=== PATIENT | male | born 1950 | race Caucasian/White ===

== ENCOUNTER 2021-07-26 20:08 | Emergency (ER) | payer MEDICARE, SELFPAY ==
[~2021-07-26] VITALS: Ht 180.3 cm; Wt 74.8 kg
[2021-07-26 20:30] VITALS: BP_SYST 99
[2021-07-26] MEDS ORDERED: PIPERACILLIN/TAZO 3.375 GM in NS 50 ML IV ONE (20:45)
[2021-07-26] MEDS ORDERED: NACL 0.9% 2,000 ML IV ONE (20:45)
[2021-07-26] MEDS ORDERED: ASPI-1155 PO (20:47)
[2021-07-26] MEDS ORDERED: ACET325T PO (20:47)
[2021-07-26] MEDS ORDERED: BISA10SU61 RC (20:48)
[2021-07-26] MEDS ORDERED: BISO5TAB15 PO (20:49)
[2021-07-26] MEDS ORDERED: DONE10TA44 PO (20:51)
[2021-07-26] MEDS ORDERED: CARB1TAB21 PO ×2 (20:51)
[2021-07-26] MEDS ORDERED: LOVA20TA2 PO (20:52)
[2021-07-26] MEDS ORDERED: LOSA25TA3 PO (20:52)
[2021-07-26] MEDS ORDERED: POLY17PO4 PO (20:56)
[2021-07-26] MEDS ORDERED: SER25 PO (20:56)
[2021-07-26] MEDS ORDERED: SERT-436 PO (20:57)
[2021-07-26 21:18] LABS: BASOPHILS % (AUTO) 0.3 % (0.0-2.0); EOSINOPHILS % (AUTO) 0.4 % (0.0-4.0); HEMATOCRIT 38.7 % (36-54); HEMOGLOBIN 12.9 g/dL (14.0-18.0); LYMPHOCYTES # (AUTO) 1.4 K/uL (1.0-5.5); LYMPHOCYTES % (AUTO) 11.7 % (20.5-51.5); MEAN CORPUSCULAR HEMOGLOBIN 29 pg (27-31); MEAN CORPUSCULAR HGB CONC 33 % (32-36); MEAN CORPUSCULAR VOLUME 88 fL (79.0-98.0); MONOCYTES % (AUTO) 8.6 % (1.7-9.3); NEUTROPHILS # (AUTO) 9.5 K/uL (1.8-7.7); PLATELET COUNT (AUTO) 208 K/uL (130-430); RED CELL DISTRIBUTION WIDTH 13.4 % (9.0-15.0); WHITE BLOOD COUNT (AUTO) 12.1 K/uL (4.8-10.8)
[2021-07-26 21:25] LABS: PROTHROMBIN TIME 9.9 SECS (9.5-12.5)
[2021-07-26 21:28] LABS: ANION GAP 7 (5-15); CHLORIDE 101 mmol/L (98-107); CREATININE 0.82 mg/dL (0.55-1.30); GLUCOSE 104 mg/dL (70-99); POTASSIUM 3.6 mmol/L (3.5-5.1); SODIUM SERUM 138 mmol/L (136-145); UREA NITROGEN, BLOOD 20 mg/dL (8-21)
[2021-07-26] MEDS ORDERED: cefTRIAXone 1 GM in D5W 50 ML IV ONE (21:30)
[2021-07-26 21:37] LABS: ALANINE AMINOTRANSFERASE 11 U/L (12-78); ALBUMIN 3.2 g/dL (3.4-4.8); ASPARTATE AMINOTRANSFERASE 15 U/L (10-37); TOTAL BILIRUBIN 0.8 mg/dL (0.0-1.0)
[2021-07-26] MEDS ORDERED: cefTRIAXone 1 GM VIAL ONE (21:53)
[2021-07-26 23:26] LABS: CLARITY/URINE SLIGHTLY HAZY (CLEAR); COLOR,URINE YELLOW (YELLOW)
[2021-07-26 23:29] LABS: PH,URINE 6.5 (5.0-8.0)
[2021-07-26 23:30] LABS: BILIRUBIN,URINE NEGATIVE (NEGATIVE); BLOOD, URINE 3+ (NEGATIVE); GLUCOSE,URINE NEGATIVE (NEGATIVE); KETONES,URINE NEGATIVE (NEGATIVE); LEUKOCYTE ESTERASE ,URINE 1+ (NEGATIVE); NITRITE, URINE NEGATIVE (NEGATIVE); PROTEIN URINE 2+ (NEGATIVE)
[2021-07-27] MEDS ORDERED: NACL 0.9% 1,000 ML IV ONE ×2 (00:15→01:30)
[2021-07-27 01:11] LABS: BACTERIA,URINE FEW /HPF (None Seen); WBC,URINE >100 /HPF (0-3)
[2021-07-27 01:12] LABS: MUCUS,URINE 3+ /LPF (None Seen); TRICHOMONAS,URINE None Seen /HPF (None Seen); YEAST,URINE Rare /HPF (None Seen)
[2021-07-27] MEDS ORDERED: ACETAMINOPHEN 500 MG TABLET PO ONE (01:30)
[2021-07-27] MEDS ORDERED: HALOPERIDOL LACTATE 5 MG/ML VIAL ONE (01:52)
[2021-07-27 07:49] VITALS: BP_SYST 128
== END 2021-07-27 07:49 ==
LOC: SED 20:08
DX: A41.9 Sepsis, unspecified organism (principal); N39.0 Urinary tract infection, site not specified; I10 Essential (primary) hypertension; Z88.0 Allergy status to penicillin; Z79.899 Other long term (current) drug therapy; Z20.822 Contact with and (suspected) exposure to COVID-19
CPT/HCPCS: 36415; 71045; 80053; 81000; 83605; 84484; 85025; 85610; 85730; 87040; 87086; 87426; 93005; 96361; 96365; 99285; J0696; J1630; J7030

== ENCOUNTER 2021-08-14 20:27 | Emergency (ER) | payer MEDICARE, SELFPAY ==
[~2021-08-14] VITALS: Ht 182.9 cm; Wt 81.6 kg
[~2021-08-14 20:27] MED LIST: ACET325T PO; ASPI-1155 PO; BISA10SU61 RC; BISO5TAB15 PO; CARB1TAB21 PO; DONE10TA44 PO; LOSA25TA3 PO; LOVA20TA2 PO; POLY17PO4 PO; SER25 PO; SERT-436 PO
[2021-08-14 20:29] VITALS: BP_SYST 120
--- NOTE | 2021-08-14 20:32 | NUR ---
Placed in room 01 . Placed on credit associate, blood pressure machine and pulse oximeter. To gown for exam. Side rails up.
[2021-08-14 21:05] LABS: BASOPHILS % (AUTO) 0.5 % (0.0-2.0); EOSINOPHILS # (AUTO) 0.1 K/uL (0.0-0.4); EOSINOPHILS % (AUTO) 1.7 % (0.0-4.0); HEMATOCRIT 40.2 % (36-54); HEMOGLOBIN 13.9 g/dL (14.0-18.0); LYMPHOCYTES % (AUTO) 30.4 % (20.5-51.5); MEAN CORPUSCULAR HEMOGLOBIN 31 pg (27-31); MEAN CORPUSCULAR HGB CONC 35 % (32-36); MEAN CORPUSCULAR VOLUME 88 fL (79.0-98.0); MONOCYTES # (AUTO) 0.7 K/uL (0.0-1.0); MONOCYTES % (AUTO) 10.1 % (1.7-9.3); NEUTROPHILS # (AUTO) 3.8 K/uL (1.8-7.7); NEUTROPHILS % (AUTO) 57.3 % (40.0-70.0); PLATELET COUNT (AUTO) 333 K/uL (130-430); RED BLOOD CELL COUNT(AUTO) 4.56 MIL/uL (4.2-6.2); RED CELL DISTRIBUTION WIDTH 13.3 % (9.0-15.0); WHITE BLOOD COUNT (AUTO) 6.7 K/uL (4.8-10.8)
[2021-08-14] MEDS ORDERED: CALMO120 TP (21:10)
[2021-08-14] MEDS ORDERED: DOCU250C14 PO (21:10)
[2021-08-14] MEDS ORDERED: SERT-131 PO (21:10)
--- NOTE | 2021-08-14 21:11 | NUR ---
Medication reconciliation completed with information provided by Arie Wayne. Any prior medication reconciliation on file was reviewed and corrected.
[2021-08-14 21:21] LABS: ANION GAP 12 (5-15); CALCIUM 9.3 mg/dL (8.4-11.0); CHLORIDE 104 mmol/L (98-107); CREATININE 1.14 mg/dL (0.55-1.30); GLUCOSE 99 mg/dL (70-99); POTASSIUM 3.8 mmol/L (3.5-5.1); SODIUM SERUM 145 mmol/L (136-145); UREA NITROGEN, BLOOD 24 mg/dL (8-21)
[2021-08-14 21:24] LABS: PROTHROMBIN TIME 9.9 SECS (9.5-12.5)
[2021-08-14 21:42] LABS: ACETAMINOPHEN < 1 ug/mL (1-30); ALANINE AMINOTRANSFERASE 7 U/L (12-78); ALBUMIN 3.5 g/dL (3.4-4.8); ALCOHOL, BLOOD < 3 mg/dL (<10); ASPARTATE AMINOTRANSFERASE 11 U/L (10-37); TOTAL BILIRUBIN 0.4 mg/dL (0.0-1.0)
[2021-08-14 21:43] LABS: C-REACTIVE PROTEIN QUANT < 0.2 mg/dL (0-0.5)
[2021-08-14 21:46] LABS: ACETONE, SERUM NEGATIVE (NEGATIVE)
[2021-08-14 22:27] LABS: BARBITURATE, URINE NEGATIVE (NEG <=200); BENZODIAZEPINE, URINE NEGATIVE (NEG <=150); CANNABINOID, URINE NEGATIVE (NEG <=50); COCAINE, URINE NEGATIVE (NEG <=150); METHAMPHETAMINES SCREEN,URINE NEGATIVE (NEG <=500); OPIATE, URINE NEGATIVE (NEG <=100); PHENCYCLIDINE SCREEN,URINE NEGATIVE (NEG <=25); UR TRICYCLIC ANTIDEPRESSANTS NEGATIVE (NEG <=300); URINE AMPHETAMINE NEGATIVE (NEG <=500); URINE METHADONE NEGATIVE (NEG <=200); URINE OXYCODONE SCREEN NEGATIVE (NEG <=100); URINE PROPOXYPHENE SCREEN NEGATIVE (NEG <=300)
--- NOTE | 2021-08-14 22:48 | NUR ---
Specimens for COVID and MRSA antigens collected and sent to lab.
--- NOTE | 2021-08-15 00:38 | NUR ---
Filemon doss in [facility] - 08/15/21 at 0042 by [id number] URINE PREG= NEGATIVE
--- NOTE | 2021-08-15 01:08 | NUR ---
REPORT CALLED TO DALTON WOODS RN. CHART DISCUSSED AND QUESTIONS ANSWERED, PT STABLE AND NO RESP DISTRESS AND NO C/O PAIN,
[2021-08-15 01:11] VITALS: BP_SYST 115
--- NOTE | 2021-08-15 01:22 | NUR ---
REPORT GIVEN TO JUN HEMPHILL FROM [employer]. TRANSFER PACKET GIVEN TO MED[facility]. , PT NATALIA AND VS [facility] FOR TRANSFER.
--- NOTE | 2021-08-15 07:25 | NUR ---
Pt belongings given to EMS. Upon departure of pt, belongings were left on ER bed. Phone number provided for family member non-working.
== END 2021-08-15 01:24 | disposition short-term general hospital (02) ==
LOC: SED 20:27
DX: R41.82 Altered mental status, unspecified (principal); I10 Essential (primary) hypertension; Z88.0 Allergy status to penicillin; Z79.899 Other long term (current) drug therapy; Z20.822 Contact with and (suspected) exposure to COVID-19
CPT/HCPCS: 36415; 70450; 76376; 80053; 80307; 82009; 82140; 82550; 83605; 83880; 85025; 85610; 85730; 86140; 87040; 87081; 87426; 93005; 99285; G0480; G0481; G0482

== ENCOUNTER 2021-09-01 17:37 | Emergency (ER) | payer MEDICARE ==
[~2021-09-01] VITALS: Ht 182.9 cm; Wt 81.6 kg
[2021-09-01 17:37] VITALS: BP_SYST 163
[~2021-09-01 17:37] MED LIST changes: -ASPI-1155 PO; +CALMO120 TP; +DOCU250C14 PO; +SERT-131 PO; -SERT-436 PO
--- NOTE | 2021-09-01 17:39 | NUR ---
Patient to ER bed 4 to gown for evaluation. Side rails up. Report given to CORINNE Erickson
[2021-09-01] MEDS ORDERED: LORazepam 2 MG/ML VIAL IM ONE (18:00)
[2021-09-01 18:34] LABS: BASOPHILS % (AUTO) 0.3 % (0.0-2.0); EOSINOPHILS # (AUTO) 0.1 K/uL (0.0-0.4); EOSINOPHILS % (AUTO) 1.6 % (0.0-4.0); HEMATOCRIT 40.1 % (36-54); LYMPHOCYTES # (AUTO) 1.6 K/uL (1.0-5.5); LYMPHOCYTES % (AUTO) 32.9 % (20.5-51.5); MEAN CORPUSCULAR HEMOGLOBIN 31 pg (27-31); MEAN CORPUSCULAR HGB CONC 35 % (32-36); MEAN CORPUSCULAR VOLUME 88 fL (79.0-98.0); MONOCYTES # (AUTO) 0.3 K/uL (0.0-1.0); MONOCYTES % (AUTO) 6.4 % (1.7-9.3); NEUTROPHILS # (AUTO) 2.9 K/uL (1.8-7.7); NEUTROPHILS % (AUTO) 58.8 % (40.0-70.0); PLATELET COUNT (AUTO) 217 K/uL (130-430); RED BLOOD CELL COUNT(AUTO) 4.57 MIL/uL (4.2-6.2); RED CELL DISTRIBUTION WIDTH 13.9 % (9.0-15.0); WHITE BLOOD COUNT (AUTO) 4.9 K/uL (4.8-10.8)
--- NOTE | 2021-09-01 19:13 | NUR ---
16 greek yadav placed without incident with approx 300 cc clear yellow urine
--- NOTE | 2021-09-01 19:13 | NUR ---
report to екатерина wilson
[2021-09-01 19:24] LABS: ALANINE AMINOTRANSFERASE 14 U/L (12-78); ANION GAP 11 (5-15); ASPARTATE AMINOTRANSFERASE 14 U/L (10-37); CALCIUM 9.2 mg/dL (8.4-11.0); CHLORIDE 105 mmol/L (98-107); GLUCOSE 105 mg/dL (70-99); POTASSIUM 3.7 mmol/L (3.5-5.1); SODIUM SERUM 142 mmol/L (136-145); TOTAL BILIRUBIN 0.8 mg/dL (0.0-1.0); UREA NITROGEN, BLOOD 18 mg/dL (8-21)
[2021-09-01 19:25] LABS: ALBUMIN 3.8 g/dL (3.4-4.8); AMYLASE 211 U/L (0-100); C-REACTIVE PROTEIN QUANT < 0.2 mg/dL (0-0.5); LIPASE 1154 U/L (73-393)
[2021-09-01] MEDS ORDERED: cefTRIAXone 1 GM in LIDOCAINE 1%, 20 ML MDV 2.1 ML IM ONE (19:30)
[2021-09-01 19:54] LABS: BILIRUBIN,URINE NEGATIVE (NEGATIVE); BLOOD, URINE NEGATIVE (NEGATIVE); CLARITY/URINE CLEAR (CLEAR); COLOR,URINE YELLOW (YELLOW); GLUCOSE,URINE NEGATIVE (NEGATIVE); KETONES,URINE NEGATIVE (NEGATIVE); LEUKOCYTE ESTERASE ,URINE TRACE (NEGATIVE); NITRITE, URINE POSITIVE (NEGATIVE); PROTEIN URINE NEGATIVE (NEGATIVE)
[2021-09-01 20:14] LABS: BACTERIA,URINE MODERATE /HPF (None Seen); RBC,URINE 0-3 /HPF (0-3)
[2021-09-01] MEDS ORDERED: MORPHINE 2 MG/ML INJ. SYRINGE IVP ONE (20:30)
[2021-09-01] MEDS ORDERED: LORazepam 2 MG/ML VIAL IVP ONE (21:00)
[2021-09-01] MEDS ORDERED: LORazepam 2 MG/ML VIAL ONE (21:07)
[2021-09-01 23:30] VITALS: BP_SYST 135
--- NOTE | 2021-09-01 23:30 | NUR ---
Patient to be transferred to [facility] . Is being transferred due to insurance purposes. Receiving facility has accepting physician and available space. ER physician has signed transfer form. Patient or responsible green party has agreed to transfer and signed form. Patient belongings inventoried and will be sent with patient. Copy of nursing notes, lab reports, EKG, Physicians Orders and X-rays to be sent with patient. Report called to Keven at receiving facility. Receiving physician is [facility] has been called for transfer. ETA is now.
== END 2021-09-01 23:30 | disposition short-term general hospital (02) ==
LOC: SED 17:37
DX: K85.10 Biliary acute pancreatitis without necrosis or infection (principal); R33.9 Retention of urine, unspecified; N39.0 Urinary tract infection, site not specified; F03.90 Unspecified dementia, unspecified severity, without behavioral disturbance, psychotic disturbance, mood disturbance, and anxiety; I10 Essential (primary) hypertension; Z88.0 Allergy status to penicillin; Z95.0 Presence of cardiac pacemaker; Z20.822 Contact with and (suspected) exposure to COVID-19
CPT/HCPCS: 36415; 51702; 74176; 76376; 80053; 81000; 82150; 83605; 83690; 84484; 85025; 86140; 87086; 87426; 96372; 96374; 96375; 99284; J0696; J2001; J2060; J2270

== ENCOUNTER 2021-12-17 18:55 | Inpatient (IN) | payer MEDICARE ==
[~2021-12-17] VITALS: Ht 177.8 cm; Wt 63.5 kg
[2021-12-17 18:57] VITALS: BP_SYST 112
[2021-12-17 20:32] LABS: BASOPHILS % (AUTO) 0.2 % (0.0-2.0); EOSINOPHILS # (AUTO) 0.2 K/uL (0.0-0.4); EOSINOPHILS % (AUTO) 2.9 % (0.0-4.0); HEMATOCRIT 38.7 % (36-54); HEMOGLOBIN 13.3 g/dL (14.0-18.0); LYMPHOCYTES % (AUTO) 16.5 % (20.5-51.5); MEAN CORPUSCULAR HEMOGLOBIN 31 pg (27-31); MEAN CORPUSCULAR HGB CONC 34 % (32-36); MEAN CORPUSCULAR VOLUME 90 fL (79.0-98.0); MONOCYTES # (AUTO) 0.5 K/uL (0.0-1.0); MONOCYTES % (AUTO) 7.2 % (1.7-9.3); NEUTROPHILS # (AUTO) 4.6 K/uL (1.8-7.7); NEUTROPHILS % (AUTO) 73.2 % (40.0-70.0); PLATELET COUNT (AUTO) 203 K/uL (130-430); RED BLOOD CELL COUNT(AUTO) 4.33 MIL/uL (4.2-6.2); RED CELL DISTRIBUTION WIDTH 14.1 % (9.0-15.0); WHITE BLOOD COUNT (AUTO) 6.3 K/uL (4.8-10.8)
[2021-12-17 20:44] LABS: ANION GAP 5 (5-15); CALCIUM 8.6 mg/dL (8.4-11.0); CHLORIDE 105 mmol/L (98-107); CREATININE 0.84 mg/dL (0.55-1.30); GLUCOSE 104 mg/dL (70-99); SODIUM SERUM 140 mmol/L (136-145); UREA NITROGEN, BLOOD 24 mg/dL (8-21)
[2021-12-17 20:54] LABS: ALANINE AMINOTRANSFERASE 8 U/L (12-78); ALBUMIN 3.1 g/dL (3.4-4.8); ASPARTATE AMINOTRANSFERASE 11 U/L (10-37); PHOSPHORUS 4.2 mg/dL (2.7-4.5); TOTAL BILIRUBIN 0.5 mg/dL (0.0-1.0)
[2021-12-18 01:16] LABS: BILIRUBIN,URINE 1+ (NEGATIVE); BLOOD, URINE 3+ (NEGATIVE); CLARITY/URINE CLEAR (CLEAR); COLOR,URINE RED (YELLOW); GLUCOSE,URINE NEGATIVE (NEGATIVE); KETONES,URINE NEGATIVE (NEGATIVE); LEUKOCYTE ESTERASE ,URINE 2+ (NEGATIVE); NITRITE, URINE POSITIVE (NEGATIVE); PROTEIN URINE 2+ (NEGATIVE)
[2021-12-18 01:32] LABS: BACTERIA,URINE MODERATE /HPF (None Seen); RBC,URINE 80-100 /HPF (0-3); WBC,URINE 50-80 /HPF (0-3)
[2021-12-18 01:33] LABS: YEAST,URINE None Seen /HPF (None Seen)
[2021-12-18 01:56] VITALS: BP_SYST 123
[2021-12-18 06:55] LABS: ANION GAP 5 (5-15); CALCIUM 8.4 mg/dL (8.4-11.0); CHLORIDE 106 mmol/L (98-107); GLUCOSE 85 mg/dL (70-99); POTASSIUM 3.8 mmol/L (3.5-5.1); SODIUM SERUM 139 mmol/L (136-145); UREA NITROGEN, BLOOD 19 mg/dL (8-21)
[2021-12-18 07:01] LABS: ALANINE AMINOTRANSFERASE 8 U/L (12-78); ALBUMIN 2.9 g/dL (3.4-4.8); ASPARTATE AMINOTRANSFERASE 15 U/L (10-37); TOTAL BILIRUBIN 0.8 mg/dL (0.0-1.0)
[2021-12-18 07:45] LABS: BASOPHILS % (AUTO) 0.3 % (0.0-2.0); EOSINOPHILS # (AUTO) 0.2 K/uL (0.0-0.4); EOSINOPHILS % (AUTO) 3.8 % (0.0-4.0); HEMATOCRIT 38.1 % (36-54); HEMOGLOBIN 13.1 g/dL (14.0-18.0); LYMPHOCYTES # (AUTO) 1.2 K/uL (1.0-5.5); LYMPHOCYTES % (AUTO) 25.4 % (20.5-51.5); MEAN CORPUSCULAR HEMOGLOBIN 30 pg (27-31); MEAN CORPUSCULAR HGB CONC 34 % (32-36); MONOCYTES # (AUTO) 0.4 K/uL (0.0-1.0); MONOCYTES % (AUTO) 7.9 % (1.7-9.3); NEUTROPHILS % (AUTO) 62.6 % (40.0-70.0); PLATELET COUNT (AUTO) 198 K/uL (130-430); RED BLOOD CELL COUNT(AUTO) 4.32 MIL/uL (4.2-6.2); RED CELL DISTRIBUTION WIDTH 14.2 % (9.0-15.0); WHITE BLOOD COUNT (AUTO) 4.8 K/uL (4.8-10.8)
[2021-12-18 08:00] VITALS: BP_SYST 137
[2021-12-18 08:01] LABS: MEAN CORPUSCULAR VOLUME 88 fL (79.0-98.0)
[2021-12-18] MEDS ORDERED: POLYETHYLENE GLYCOL 3350, 17 GM/ POWD.PACK PO PRN (08:45)
[2021-12-18] MEDS ORDERED: BISACODYL 10 MG/SUPPOSITORY RC PRN (08:45)
[2021-12-18] MEDS ORDERED: ACETAMINOPHEN 325 MG TABLET PO PRN (08:45)
[2021-12-18] MEDS: CARBIDOPA/LEVODOPA 25/100 MG TABLET PO SCH ×3 (10:31→21:00)
[2021-12-18] MEDS: SERTRALINE HCL 50 MG TABLET PO SCH (10:31)
[2021-12-18] MEDS: LOSARTAN POTASSIUM 25 MG TABLET PO SCH (10:32)
[2021-12-18] MEDS: DOCUSATE SODIUM 250 MG CAPSULE PO SCH (10:33)
[2021-12-18] MEDS: MENTHOL/ZINC OXIDE 113 GM OINT. TP SCH (10:33)
[2021-12-18 11:24] VITALS: BP_SYST 136
[2021-12-18 15:27] VITALS: BP_SYST 131
[2021-12-18 20:22] VITALS: BP_SYST 80
[2021-12-18 20:30] VITALS: BP_SYST 74
[2021-12-18] MEDS ORDERED: NACL 0.9% 1,000 ML IV ONE ×2 (20:30)
[2021-12-18] MEDS: NACL 0.9% 1,000 ML IV SCH (20:30)
[2021-12-18] MEDS: DONEPEZIL HCL 5 MG TABLET (ARICEPT) PO SCH (21:00)
[2021-12-18] MEDS: LEVODOPA PO SCH (21:00)
[2021-12-18] MEDS: QUEtiapine FUMARATE 25 MG TABLET PO SCH (21:00)
[2021-12-18] MEDS: CARBIDOPA PO SCH (21:00)
[2021-12-18] MEDS: ATORVASTATIN 10 MG TABLET PO SCH (21:00)
[2021-12-18] MEDS ORDERED: ALBUMIN HUMAN 25% 100 ML IV ONE (22:00)
[2021-12-18] MEDS ORDERED: ALBUMIN HUMAN 25% 200 ML IV ONE ×2 (22:00→23:00)
[2021-12-18] MEDS ORDERED: NOREPINEPHRINE BITARTRATE 4 MG in D5W 246 ML IV PRN (23:30)
[2021-12-19] VITALS (16 sets, daily range): BP systolic 83–123
[2021-12-19] MEDS ORDERED: NOREPINEPHRINE 4 MG/4 ML VIAL IV ONE (00:14)
[2021-12-19] MEDS: NACL 0.9% 1,000 ML IV SCH ×2 (00:32→17:30)
[2021-12-19 06:46] LABS: BASOPHILS % (AUTO) 0.1 % (0.0-2.0); HEMATOCRIT 29.7 % (36-54); HEMOGLOBIN 10.3 g/dL (14.0-18.0); LYMPHOCYTES # (AUTO) 0.6 K/uL (1.0-5.5); LYMPHOCYTES % (AUTO) 3.7 % (20.5-51.5); MEAN CORPUSCULAR HEMOGLOBIN 31 pg (27-31); MEAN CORPUSCULAR HGB CONC 35 % (32-36); MEAN CORPUSCULAR VOLUME 89 fL (79.0-98.0); MONOCYTES # (AUTO) 0.7 K/uL (0.0-1.0); MONOCYTES % (AUTO) 4.4 % (1.7-9.3); NEUTROPHILS # (AUTO) 13.7 K/uL (1.8-7.7); NEUTROPHILS % (AUTO) 91.8 % (40.0-70.0); PLATELET COUNT (AUTO) 143 K/uL (130-430); RED BLOOD CELL COUNT(AUTO) 3.35 MIL/uL (4.2-6.2); RED CELL DISTRIBUTION WIDTH 13.9 % (9.0-15.0)
[2021-12-19 07:37] LABS: ANION GAP 11 (5-15); CALCIUM 8.1 mg/dL (8.4-11.0); CHLORIDE 105 mmol/L (98-107); GLUCOSE 109 mg/dL (70-99); POTASSIUM 3.7 mmol/L (3.5-5.1); SODIUM SERUM 139 mmol/L (136-145); UREA NITROGEN, BLOOD 28 mg/dL (8-21)
[2021-12-19 08:01] LABS: ALANINE AMINOTRANSFERASE 29 U/L (12-78); ALBUMIN 3.6 g/dL (3.4-4.8); LIPASE 53 U/L (73-393); THYROID STIMULATING HORMONE 1.64 uIu/mL (0.36-3.74)
[2021-12-19 08:15] LABS: ASPARTATE AMINOTRANSFERASE 54 U/L (10-37); TOTAL BILIRUBIN 1.8 mg/dL (0.0-1.0)
[2021-12-19] MEDS: DOCUSATE SODIUM 250 MG CAPSULE PO SCH (09:00)
[2021-12-19] MEDS: ATENOLOL 50 MG TABLET (TENORMIN) PO SCH (09:00)
[2021-12-19] MEDS: LOSARTAN POTASSIUM 25 MG TABLET PO SCH (09:00)
[2021-12-19] MEDS: MENTHOL/ZINC OXIDE 113 GM OINT. TP SCH (09:26)
[2021-12-19] MEDS: SERTRALINE HCL 50 MG TABLET PO SCH (09:27)
[2021-12-19] MEDS: CARBIDOPA/LEVODOPA 25/100 MG TABLET PO SCH ×3 (09:27→20:11)
[2021-12-19 10:02] LABS: CHOLESTEROL 130 mg/dL (<200); HDL CHOLESTEROL 32 mg/dL (>45); LDL CHOLESTEROL 84 mg/dL (<100); TRIGLYCERIDES 68 mg/dL (30-150)
[2021-12-19] MEDS: ATORVASTATIN 10 MG TABLET PO SCH (20:10)
[2021-12-19] MEDS: LEVODOPA PO SCH (20:11)
[2021-12-19] MEDS: QUEtiapine FUMARATE 25 MG TABLET PO SCH (20:11)
[2021-12-19] MEDS: CARBIDOPA PO SCH (20:11)
[2021-12-19] MEDS: DONEPEZIL HCL 5 MG TABLET (ARICEPT) PO SCH (20:11)
[2021-12-19] MEDS ORDERED: LORazepam 2 MG/ML VIAL ONE (20:49)
[2021-12-20 08:00] VITALS: BP_SYST 105
[2021-12-20] MEDS: DOCUSATE SODIUM 250 MG CAPSULE PO SCH (08:24)
[2021-12-20] MEDS: LOSARTAN POTASSIUM 25 MG TABLET PO SCH (08:25)
[2021-12-20] MEDS: SERTRALINE HCL 50 MG TABLET PO SCH (08:25)
[2021-12-20] MEDS: CARBIDOPA/LEVODOPA 25/100 MG TABLET PO SCH ×3 (08:25→20:24)
[2021-12-20] MEDS: ATENOLOL 50 MG TABLET (TENORMIN) PO SCH (08:26)
[2021-12-20 08:36] LABS: BASOPHILS % (AUTO) 0.3 % (0.0-2.0); EOSINOPHILS # (AUTO) 0.2 K/uL (0.0-0.4); EOSINOPHILS % (AUTO) 2.5 % (0.0-4.0); HEMATOCRIT 32.6 % (36-54); HEMOGLOBIN 11.2 g/dL (14.0-18.0); LYMPHOCYTES # (AUTO) 0.8 K/uL (1.0-5.5); LYMPHOCYTES % (AUTO) 11.5 % (20.5-51.5); MEAN CORPUSCULAR HEMOGLOBIN 31 pg (27-31); MEAN CORPUSCULAR HGB CONC 34 % (32-36); MEAN CORPUSCULAR VOLUME 90 fL (79.0-98.0); MONOCYTES # (AUTO) 0.6 K/uL (0.0-1.0); NEUTROPHILS # (AUTO) 5.7 K/uL (1.8-7.7); NEUTROPHILS % (AUTO) 77.7 % (40.0-70.0); PLATELET COUNT (AUTO) 114 K/uL (130-430); RED BLOOD CELL COUNT(AUTO) 3.63 MIL/uL (4.2-6.2); RED CELL DISTRIBUTION WIDTH 14.1 % (9.0-15.0); WHITE BLOOD COUNT (AUTO) 7.3 K/uL (4.8-10.8)
[2021-12-20] MEDS: NACL 0.9% 1,000 ML IV SCH ×3 (09:56→20:25)
[2021-12-20] MEDS: MENTHOL/ZINC OXIDE 113 GM OINT. TP SCH (09:57)
[2021-12-20 10:13] LABS: ANION GAP 6 (5-15); CALCIUM 8.2 mg/dL (8.4-11.0); CHLORIDE 107 mmol/L (98-107); CREATININE 0.86 mg/dL (0.55-1.30); GLUCOSE 81 mg/dL (70-99); PHOSPHORUS 2.6 mg/dL (2.7-4.5); POTASSIUM 3.7 mmol/L (3.5-5.1); SODIUM SERUM 138 mmol/L (136-145); UREA NITROGEN, BLOOD 24 mg/dL (8-21)
[2021-12-20 12:00] VITALS: BP_SYST 149
[2021-12-20] MEDS ORDERED: K PHOS 30 MM in NS 250 ML IV ONE (15:00)
[2021-12-20 16:00] VITALS: BP_SYST 142
[2021-12-20] MEDS: LORazepam 2 MG/ML VIAL IVP PRN ×2 (16:11→22:17)
[2021-12-20 20:00] VITALS: BP_SYST 127
[2021-12-20] MEDS: QUEtiapine FUMARATE 25 MG TABLET PO SCH (20:24)
[2021-12-20] MEDS: DONEPEZIL HCL 5 MG TABLET (ARICEPT) PO SCH (20:24)
[2021-12-20] MEDS: ATORVASTATIN 10 MG TABLET PO SCH (20:25)
[2021-12-20] MEDS: LEVODOPA PO SCH (21:00)
[2021-12-20] MEDS: CARBIDOPA PO SCH (21:00)
[2021-12-21 00:41] VITALS: BP_SYST 122
[2021-12-21 07:48] VITALS: BP_SYST 115
[2021-12-21 07:54] LABS: BASOPHILS % (AUTO) 0.2 % (0.0-2.0); EOSINOPHILS # (AUTO) 0.1 K/uL (0.0-0.4); EOSINOPHILS % (AUTO) 1.3 % (0.0-4.0); HEMATOCRIT 30.9 % (36-54); HEMOGLOBIN 10.8 g/dL (14.0-18.0); LYMPHOCYTES # (AUTO) 0.8 K/uL (1.0-5.5); LYMPHOCYTES % (AUTO) 13.4 % (20.5-51.5); MEAN CORPUSCULAR HEMOGLOBIN 31 pg (27-31); MEAN CORPUSCULAR HGB CONC 35 % (32-36); MEAN CORPUSCULAR VOLUME 89 fL (79.0-98.0); MONOCYTES # (AUTO) 0.5 K/uL (0.0-1.0); MONOCYTES % (AUTO) 9.2 % (1.7-9.3); NEUTROPHILS # (AUTO) 4.3 K/uL (1.8-7.7); NEUTROPHILS % (AUTO) 75.9 % (40.0-70.0); PLATELET COUNT (AUTO) 123 K/uL (130-430); RED BLOOD CELL COUNT(AUTO) 3.49 MIL/uL (4.2-6.2); RED CELL DISTRIBUTION WIDTH 14.5 % (9.0-15.0); WHITE BLOOD COUNT (AUTO) 5.6 K/uL (4.8-10.8)
[2021-12-21 08:19] LABS: ANION GAP 8 (5-15); CALCIUM 7.9 mg/dL (8.4-11.0); CHLORIDE 106 mmol/L (98-107); CREATININE 1.15 mg/dL (0.55-1.30); GLUCOSE 104 mg/dL (70-99); PHOSPHORUS 3.9 mg/dL (2.7-4.5); POTASSIUM 3.5 mmol/L (3.5-5.1); SODIUM SERUM 138 mmol/L (136-145); UREA NITROGEN, BLOOD 21 mg/dL (8-21)
[2021-12-21] MEDS: NACL 0.9% 1,000 ML IV SCH ×2 (08:30→20:20)
[2021-12-21] MEDS: SERTRALINE HCL 50 MG TABLET PO SCH (08:34)
[2021-12-21] MEDS: DOCUSATE SODIUM 250 MG CAPSULE PO SCH (08:35)
[2021-12-21] MEDS: CARBIDOPA/LEVODOPA 25/100 MG TABLET PO SCH ×3 (08:35→21:00)
[2021-12-21] MEDS: ATENOLOL 50 MG TABLET (TENORMIN) PO SCH (08:35)
[2021-12-21] MEDS: LOSARTAN POTASSIUM 25 MG TABLET PO SCH (08:36)
[2021-12-21 11:55] LABS: URINE SODIUM, RANDOM 167 mmol/L (40-220)
[2021-12-21 12:00] VITALS: BP_SYST 115
[2021-12-21] MEDS: MENTHOL/ZINC OXIDE 113 GM OINT. TP SCH (13:52)
[2021-12-21 16:51] VITALS: BP_SYST 131
[2021-12-21 20:00] VITALS: BP_SYST 146
[2021-12-21] MEDS: ATORVASTATIN 10 MG TABLET PO SCH (20:24)
[2021-12-21] MEDS: DONEPEZIL HCL 5 MG TABLET (ARICEPT) PO SCH (20:24)
[2021-12-21] MEDS: QUEtiapine FUMARATE 25 MG TABLET PO SCH (21:00)
[2021-12-21] MEDS: CARBIDOPA PO SCH (21:00)
[2021-12-21] MEDS: LEVODOPA PO SCH (21:00)
[2021-12-22 00:40] VITALS: BP_SYST 123
[2021-12-22 07:37] VITALS: BP_SYST 126
[2021-12-22] MEDS: SERTRALINE HCL 50 MG TABLET PO SCH (09:39)
[2021-12-22] MEDS: LOSARTAN POTASSIUM 25 MG TABLET PO SCH (09:39)
[2021-12-22] MEDS: DOCUSATE SODIUM 250 MG CAPSULE PO SCH (09:40)
[2021-12-22] MEDS: CARBIDOPA/LEVODOPA 25/100 MG TABLET PO SCH ×3 (09:40→21:31)
[2021-12-22] MEDS: ATENOLOL 50 MG TABLET (TENORMIN) PO SCH (09:43)
[2021-12-22] MEDS: MENTHOL/ZINC OXIDE 113 GM OINT. TP SCH (09:44)
[2021-12-22] MEDS: NACL 0.9% 1,000 ML IV SCH (09:46)
[2021-12-22 15:47] VITALS: BP_SYST 116
[2021-12-22 20:00] VITALS: BP_SYST 139
[2021-12-22] MEDS: CARBIDOPA PO SCH (21:00)
[2021-12-22] MEDS: LEVODOPA PO SCH (21:00)
[2021-12-22] MEDS: ATORVASTATIN 10 MG TABLET PO SCH (21:31)
[2021-12-22] MEDS: DONEPEZIL HCL 5 MG TABLET (ARICEPT) PO SCH (21:31)
[2021-12-22] MEDS: QUEtiapine FUMARATE 25 MG TABLET PO SCH (21:31)
[2021-12-23 00:16] VITALS: BP_SYST 126
[2021-12-23] MEDS: NACL 0.9% 1,000 ML IV SCH ×2 (02:14→15:20)
[2021-12-23 08:36] LABS: BASOPHILS % (AUTO) 0.4 % (0.0-2.0); EOSINOPHILS # (AUTO) 0.2 K/uL (0.0-0.4); EOSINOPHILS % (AUTO) 4.8 % (0.0-4.0); HEMATOCRIT 32.1 % (36-54); HEMOGLOBIN 11.2 g/dL (14.0-18.0); LYMPHOCYTES % (AUTO) 22.6 % (20.5-51.5); MEAN CORPUSCULAR HEMOGLOBIN 31 pg (27-31); MEAN CORPUSCULAR HGB CONC 35 % (32-36); MEAN CORPUSCULAR VOLUME 88 fL (79.0-98.0); MONOCYTES # (AUTO) 0.5 K/uL (0.0-1.0); NEUTROPHILS # (AUTO) 2.7 K/uL (1.8-7.7); NEUTROPHILS % (AUTO) 60.2 % (40.0-70.0); PLATELET COUNT (AUTO) 145 K/uL (130-430); RED BLOOD CELL COUNT(AUTO) 3.66 MIL/uL (4.2-6.2); RED CELL DISTRIBUTION WIDTH 13.6 % (9.0-15.0); WHITE BLOOD COUNT (AUTO) 4.6 K/uL (4.8-10.8)
[2021-12-23 08:46] VITALS: BP_SYST 134
[2021-12-23] MEDS: CARBIDOPA/LEVODOPA 25/100 MG TABLET PO SCH ×3 (08:53→21:31)
[2021-12-23] MEDS: ATENOLOL 50 MG TABLET (TENORMIN) PO SCH (08:54)
[2021-12-23] MEDS: MENTHOL/ZINC OXIDE 113 GM OINT. TP SCH (08:54)
[2021-12-23] MEDS: DOCUSATE SODIUM 250 MG CAPSULE PO SCH (08:54)
[2021-12-23] MEDS: LOSARTAN POTASSIUM 25 MG TABLET PO SCH (08:54)
[2021-12-23] MEDS: SERTRALINE HCL 50 MG TABLET PO SCH (08:54)
[2021-12-23 09:18] LABS: ANION GAP 8 (5-15); CALCIUM 8.5 mg/dL (8.4-11.0); CHLORIDE 107 mmol/L (98-107); CREATININE 0.82 mg/dL (0.55-1.30); GLUCOSE 89 mg/dL (70-99); POTASSIUM 3.5 mmol/L (3.5-5.1); SODIUM SERUM 143 mmol/L (136-145); UREA NITROGEN, BLOOD 13 mg/dL (8-21)
[2021-12-23 20:03] VITALS: BP_SYST 134
[2021-12-23] MEDS: CARBIDOPA PO SCH (21:00)
[2021-12-23] MEDS: LEVODOPA PO SCH (21:00)
[2021-12-23] MEDS: QUEtiapine FUMARATE 25 MG TABLET PO SCH (21:32)
[2021-12-23] MEDS: ATORVASTATIN 10 MG TABLET PO SCH (21:32)
[2021-12-23] MEDS: DONEPEZIL HCL 5 MG TABLET (ARICEPT) PO SCH (21:32)
[2021-12-24 00:15] VITALS: BP_SYST 132
[2021-12-24 08:15] VITALS: BP_SYST 142
[2021-12-24] MEDS: NACL 0.9% 1,000 ML IV SCH (09:00)
[2021-12-24] MEDS: CARBIDOPA/LEVODOPA 25/100 MG TABLET PO SCH ×2 (09:01→15:27)
[2021-12-24] MEDS: SERTRALINE HCL 50 MG TABLET PO SCH (09:01)
[2021-12-24] MEDS: DOCUSATE SODIUM 250 MG CAPSULE PO SCH (09:01)
[2021-12-24] MEDS: ATENOLOL 50 MG TABLET (TENORMIN) PO SCH (09:02)
[2021-12-24] MEDS: LOSARTAN POTASSIUM 25 MG TABLET PO SCH (09:02)
[2021-12-24] MEDS: MENTHOL/ZINC OXIDE 113 GM OINT. TP SCH (09:03)
[2021-12-24 12:15] VITALS: BP_SYST 137
[2021-12-24 14:41] VITALS: BP_SYST 137
[2021-12-24 16:15] VITALS: BP_SYST 144
== END 2021-12-24 19:04 | disposition home or self-care (01) | DRG 871 ==
LOC: SED 18:55 → STU 23:02 → SIC 12-18 23:19 → STU 12-19 21:39
PROVIDERS: ADMIT Internal Medicine; ATTEND Internal Medicine
PROC: 0T9B70Z Drainage of Bladder with Drainage Device, Via Natural or Artificial Opening (ICD-10-PCS; principal; 2021-12-17)
DX: A41.52 Sepsis due to Pseudomonas (principal); E43 Unspecified severe protein-calorie malnutrition; G93.41 Metabolic encephalopathy; C95.90 Leukemia, unspecified not having achieved remission; N39.0 Urinary tract infection, site not specified; N17.9 Acute kidney failure, unspecified; E78.5 Hyperlipidemia, unspecified; F02.80 Dementia in other diseases classified elsewhere, unspecified severity, without behavioral disturbance, psychotic disturbance, mood disturbance, and anxiety; F32.A Depression, unspecified; G20 Parkinson's disease; G30.9 Alzheimer's disease, unspecified; N40.1 Benign prostatic hyperplasia with lower urinary tract symptoms; I95.1 Orthostatic hypotension; R31.0 Gross hematuria; Z20.822 Contact with and (suspected) exposure to COVID-19; Z66 Do not resuscitate; Z88.0 Allergy status to penicillin; Z95.0 Presence of cardiac pacemaker; Z79.899 Other long term (current) drug therapy; Z68.20 Body mass index [BMI] 20.0-20.9, adult
CPT/HCPCS: 36415; 70450-TC; 71045; 76376; 76770; 80048; 80053; 80061; 81000; 82570; 83605; 83690; 83735; 83880; 84100; 84302; 84443; 84484; 85025; 87040; 87081; 87086; 92610-GN; 93005; 93306; 99285; G0378; J1956; J2060; J7050

== ENCOUNTER 2022-01-13 15:17 | Emergency (ER) | payer MEDICARE ==
[~2022-01-13] VITALS: Ht 160 cm; Wt 54.4 kg
[~2022-01-13 15:17] MED LIST changes: -CARB1TAB21 PO; +CARB1TAB33 PO
--- NOTE | 2022-01-13 15:25 | NUR ---
Placed in room 01 . Placed on environmental monitoring technician, blood pressure machine and pulse oximeter. To gown for exam. Side rails up.
[2022-01-13 15:27] VITALS: BP_SYST 115
--- NOTE | 2022-01-13 15:27 | NUR ---
Patient brought in by ACLS from [facility] c/o altered mental status. Patient has a hx of parkinsons, dementia, cardiac disorders with pacemaker placement. Patient is unresponsive unless he is moved. Pupils are equal and reactive to light and accomodation. Patient does some tracking when spoken to. Patient appears in no signs of acute distress. Will continue to monitor and provide care as ordered.
--- NOTE | 2022-01-13 16:15 | NUR ---
Collected urine specimen In/Out yadav cath. per dr. muller. Pt tolerated well. bed at lowest position, rails up.
[2022-01-13 16:36] LABS: BASOPHILS % (AUTO) 0.1 % (0.0-2.0); EOSINOPHILS % (AUTO) 0.1 % (0.0-4.0); HEMATOCRIT 46.6 % (36-54); HEMOGLOBIN 15.2 g/dL (14.0-18.0); LYMPHOCYTES # (AUTO) 1.3 K/uL (1.0-5.5); MEAN CORPUSCULAR HEMOGLOBIN 30 pg (27-31); MEAN CORPUSCULAR HGB CONC 33 % (32-36); MEAN CORPUSCULAR VOLUME 90 fL (79.0-98.0); MONOCYTES # (AUTO) 0.6 K/uL (0.0-1.0); MONOCYTES % (AUTO) 6.2 % (1.7-9.3); NEUTROPHILS # (AUTO) 7.2 K/uL (1.8-7.7); NEUTROPHILS % (AUTO) 79.6 % (40.0-70.0); PLATELET COUNT (AUTO) 259 K/uL (130-430); RED BLOOD CELL COUNT(AUTO) 5.17 MIL/uL (4.2-6.2); RED CELL DISTRIBUTION WIDTH 14.3 % (9.0-15.0); WHITE BLOOD COUNT (AUTO) 9.1 K/uL (4.8-10.8)
[2022-01-13 16:51] LABS: PROTHROMBIN TIME 10.7 SECS (9.5-12.5)
[2022-01-13 16:53] LABS: BILIRUBIN,URINE 1+ (NEGATIVE); BLOOD, URINE 3+ (NEGATIVE); CLARITY/URINE SL CLOUDY (CLEAR); COLOR,URINE RED (YELLOW); GLUCOSE,URINE NEGATIVE (NEGATIVE); KETONES,URINE NEGATIVE (NEGATIVE); LEUKOCYTE ESTERASE ,URINE 2+ (NEGATIVE); NITRITE, URINE POSITIVE (NEGATIVE); PROTEIN URINE 2+ (NEGATIVE)
[2022-01-13 16:54] LABS: ACETONE, SERUM NEGATIVE (NEGATIVE)
[2022-01-13 17:10] LABS: BACTERIA,URINE MODERATE /HPF (None Seen); MUCUS,URINE None Seen /LPF (None Seen); RBC,URINE >100 /HPF (0-3); WBC,URINE >100 /HPF (0-3)
[2022-01-13 17:11] LABS: BARBITURATE, URINE NEGATIVE (NEG <=200); BENZODIAZEPINE, URINE NEGATIVE (NEG <=150); CANNABINOID, URINE NEGATIVE (NEG <=50); COCAINE, URINE NEGATIVE (NEG <=150); METHAMPHETAMINES SCREEN,URINE NEGATIVE (NEG <=500); OPIATE, URINE NEGATIVE (NEG <=100); PHENCYCLIDINE SCREEN,URINE NEGATIVE (NEG <=25); UR TRICYCLIC ANTIDEPRESSANTS NEGATIVE (NEG <=300); URINE AMPHETAMINE POSITIVE (NEG <=500); URINE METHADONE NEGATIVE (NEG <=200); URINE OXYCODONE SCREEN NEGATIVE (NEG <=100); URINE PROPOXYPHENE SCREEN NEGATIVE (NEG <=300)
[2022-01-13 17:13] LABS: ANION GAP 15 (5-15); CALCIUM 9.4 mg/dL (8.4-11.0); CREATININE 1.49 mg/dL (0.55-1.30); GLUCOSE 122 mg/dL (70-99); POTASSIUM 3.6 mmol/L (3.5-5.1); UREA NITROGEN, BLOOD 73 mg/dL (8-21)
--- NOTE | 2022-01-13 17:20 | NUR ---
Critical lab results : Sodium [address] Hoyos.
[2022-01-13 17:26] LABS: ALANINE AMINOTRANSFERASE 19 U/L (12-78); ALBUMIN 3.4 g/dL (3.4-4.8); ASPARTATE AMINOTRANSFERASE 19 U/L (10-37); C-REACTIVE PROTEIN QUANT 13.9 mg/dL (0-0.5); TOTAL BILIRUBIN 0.9 mg/dL (0.0-1.0)
[2022-01-13 17:30] LABS: ACETAMINOPHEN < 1 ug/mL (1-30); ALCOHOL, BLOOD < 3 mg/dL (<10); CHLORIDE 120 mmol/L (98-107)
[2022-01-13] MEDS ORDERED: NACL 0.9% 1,000 ML IV ONE (17:30)
[2022-01-13] MEDS ORDERED: cefTRIAXone 1 GM in D5W 50 ML IV ONE (17:30)
[2022-01-13 17:32] LABS: SODIUM SERUM 161 mmol/L (136-145)
[2022-01-13] MEDS ORDERED: cefTRIAXone 1 GM VIAL ONE (18:21)
--- NOTE | 2022-01-13 18:56 | NUR ---
Spoke to pt's daughter Dina with update on her father's status. She can be reached with updates at [phone].
--- NOTE | 2022-01-13 19:26 | NUR ---
Received report from QI Langley; assuming care of patient at this time.
--- NOTE | 2022-01-13 19:35 | NUR ---
Condom cath placed at this time due to urinary incontinence. Non rebreather removed from patient and switched to 2L NC. Patient O2 saturation 97%.
--- NOTE | 2022-01-13 19:40 | NUR ---
Patient's at bedside.
--- NOTE | 2022-01-13 20:05 | NUR ---
Called [facility] and gave report to QI Selby for this patient. Patient to be admitted to room 505; admitting DR Lamberto Zuleta. Patient to be transferred by [facility] with ETA 2030.
--- NOTE | 2022-01-13 20:20 | NUR ---
Patient resting comfortably with side rails raised and at bedside. NAD noted at this time.
--- NOTE | 2022-01-13 20:35 | NUR ---
Covid swab done and resent to lab at this time.
--- NOTE | 2022-01-13 22:10 | NUR ---
Spoke to [facility] at this time. New transport ETA of 2300.
[2022-01-13 23:29] VITALS: BP_SYST 120
--- NOTE | 2022-01-13 23:29 | NUR ---
Patient to be transferred to [facility]. Patient is being transferred due to higher level of care. Receiving facility has accepting physician and available space. ER physician Romain has signed transfer form. Patient or responsible constitution party has agreed to transfer and signed form. Patient belongings inventoried and will be sent with patient. Copy of nursing notes, lab reports, EKG, Physicians Orders and X-rays to be sent with patient. Report called to QI Selby at receiving facility for room 505. Receiving physician is Dr Lamberto Zuleta. [facility] has been called for transfer. ETA is 2330.
--- NOTE | 2022-01-19 06:38 | NUR ---
ADDENDUM Nacl 0.9% 1000ml start time 18:41 end time 19:41 Ceftriaxone 1gm in D5w 50ml start time 18:40 end time 19:10
== END 2022-01-13 23:29 | disposition short-term general hospital (02) ==
LOC: SED 15:17
DX: R41.82 Altered mental status, unspecified (principal); E87.0 Hyperosmolality and hypernatremia; N39.0 Urinary tract infection, site not specified; I10 Essential (primary) hypertension; E78.5 Hyperlipidemia, unspecified; Z88.0 Allergy status to penicillin; Z79.899 Other long term (current) drug therapy; Z20.822 Contact with and (suspected) exposure to COVID-19
CPT/HCPCS: 99285; 96365; 70450; 71045; 87426; 80307; 80053; 81000; 82009; 82140; 82550; 83880; 85025; 85610; 85730; 86140; 87040; 87086; 36415; 93005; 76376; 83605; G0482; J0696; G0480; G0481